=== PATIENT | female | born 1980 | race Two or more races ===

== ENCOUNTER 2023-07-25 05:31 | Emergency (ER) | payer MEDICAID ==
[~2023-07-25] VITALS: Ht 160 cm; Wt 71.4 kg
[2023-07-25 05:34] VITALS: TEMP 98.3
[2023-07-25 06:34] LABS: BASOPHILS % (AUTO) 0.5 % (0.0-2.0); EOSINOPHILS % (AUTO) 2.1 % (1.0-6.0); HEMATOCRIT 38.3 % (36-46); HEMOGLOBIN 13.4 g/dL (12.0-16.0); LYMPHOCYTES # (AUTO) 3.3 K/uL (1.0-4.8); LYMPHOCYTES % (AUTO) 30.9 % (22.0-44.0); MEAN CORPUSCULAR HEMOGLOBIN 30.9 pg (26.0-34.0); MEAN CORPUSCULAR HGB CONC 35.1 G/dL (31.0-37.0); MEAN CORPUSCULAR VOLUME 88 fL (80-100); MONOCYTES # (AUTO) 0.5 K/uL (0.1-1.0); MONOCYTES % (AUTO) 4.9 % (2.0-9.0); NEUTROPHILS # (AUTO) 6.5 K/uL (1.8-7.7); NEUTROPHILS % (AUTO) 61.6 % (40.0-70.0); PLATELET COUNT (AUTO) 244 K/uL (150-450); RED BLOOD CELL COUNT(AUTO) 4.36 MIL/uL (4.00-5.20); RED CELL DISTRIBUTION WIDTH 13.7 % (11.5-14.5); WHITE BLOOD COUNT (AUTO) 10.6 K/uL (4.5-11.0)
[2023-07-25] MEDS: SODIUM CHLORIDE 0.9% 1,000 ML IV ONE (06:38)
[2023-07-25] MEDS: KETOROLAC TROMETHAMINE 30 MG/ML VIAL IVP ONE (06:39)
[2023-07-25] MEDS: ONDANSETRON HCL 4 MG/2 ML VIAL IVP ONE (06:39)
[2023-07-25] MEDS: MORPHINE SULFATE 2 MG/ML SYRINGE IVP ONE (06:44)
[2023-07-25 07:11] LABS: ACETONE,BLOOD NEGATIVE (NEGATIVE)
[2023-07-25 07:16] LABS: ANION GAP 7 mmol/L (8-16); CALCIUM, TOTAL 9.7 mg/dL (8.8-10.5); CARBON DIOXIDE 27 mmol/L (22-29); CHLORIDE 95 mmol/L (98-107); CREATININE 0.74 mg/dL (0.60-1.30); GLOMERULAR FILTR. RATE CALC > 60 mL/min (>60); GLUCOSE,RANDOM 329 mg/dL (70-110); SODIUM SERUM 129 mmol/L (136-145); UREA NITROGEN, BLOOD 14 mg/dL (7-18)
[2023-07-25 07:21] LABS: ALANINE AMINOTRANSFERASE 16 U/L (12-78); ALBUMIN 3.5 g/dL (3.4-5.0); ALKALINE PHOSPHATASE 112 U/L (46-116); ASPARTATE AMINOTRANSFERASE 12 U/L (15-37); BILIRUBIN,TOTAL 0.7 mg/dL (0.1-1.0); LIPASE 32 U/L (16-77); TOTAL PROTEIN, SERUM 8.2 g/dL (6.4-8.2)
[2023-07-25] MEDS: INSULIN REGULAR, HUMAN 100 UNITS/ML IVP ONE (08:04)
[2023-07-25] MEDS ORDERED: ONDA-104 PO (08:28)
[2023-07-25] MEDS ORDERED: SYRI-590 SQ (08:37)
[2023-07-25 09:07] VITALS: BP 123/74; PULSE 88; RESP 16
[2023-07-25 10:01] LABS: GLUCOMETER DEV NAME(LOC) ERT.5; GLUCOSE,POINT OF CARE 289 MG/DL (70-110)
== END 2023-07-25 09:10 | disposition home or self-care (01) ==
LOC: EMS 05:33
DX: E11.42 Type 2 diabetes mellitus with diabetic polyneuropathy (principal); E11.65 Type 2 diabetes mellitus with hyperglycemia; G89.29 Other chronic pain; E87.1 Hypo-osmolality and hyponatremia; Z91.011 Allergy to milk products; Z91.012 Allergy to eggs
CPT/HCPCS: 99284; 96374; 96375; 96361; 80053; 82009; 82962; 83690; 84703; 85025; 36415; J1815; J1885; J2270; J2405; J7030

== ENCOUNTER 2024-11-12 16:47 | Emergency (ER) | payer MEDICAID, OTHER ==
[~2024-11-12] VITALS: Ht 160 cm; Wt 59.1 kg
[~2024-11-12 16:47] MED LIST: ONDA-104 PO; SYRI-590 SQ
[2024-11-12 16:52] VITALS: TEMP 97.5
[2024-11-12 17:45] VITALS: BP 122/82; PULSE 110; RESP 20; O2SAT 97
[2024-11-12] MEDS: ACETAMINOPHEN 500 MG TABLET PO ONE (18:02)
[2024-11-12] MEDS: IBUPROFEN 400 MG TABLET PO ONE (18:02)
[2024-11-12] MEDS: INSULIN LISPRO 100 UNITS/ML SQ ONE (18:04)
== END 2024-11-12 19:03 | disposition home or self-care (01) ==
LOC: EMS 16:47
DX: S62.522A Displaced fracture of distal phalanx of left thumb, initial encounter for closed fracture (principal); E11.65 Type 2 diabetes mellitus with hyperglycemia; Z91.011 Allergy to milk products; Z91.012 Allergy to eggs; W01.0XXA Fall on same level from slipping, tripping and stumbling without subsequent striking against object, initial encounter; Y93.89 Activity, other specified; Y92.89 Other specified places as the place of occurrence of the external cause; Y99.8 Other external cause status
CPT/HCPCS: 82948; 82962; 96372; 99283; J1815

== ENCOUNTER 2025-01-24 16:36 | Emergency (ER) | payer OTHER ==
[~2025-01-24] VITALS: Ht 160 cm; Wt 50.0 kg
[2025-01-24 17:01] LABS: GLUCOMETER DEV NAME(LOC) ER.7; GLUCOSE,POINT OF CARE 561 MG/DL (70-110)
[2025-01-24 17:17] LABS: PLATELET COUNT (AUTO) 345 K/uL (150-450); RED BLOOD CELL COUNT(AUTO) 4.19 MIL/uL (4.00-5.20); RED CELL DISTRIBUTION WIDTH 15.9 % (11.5-14.5); WHITE BLOOD COUNT (AUTO) 9.3 K/uL (4.5-11.0)
[2025-01-24 17:27] LABS: CALCIUM, TOTAL 9.0 mg/dL (8.8-10.5); CREATININE 1.15 mg/dL (0.60-1.30); GLOMERULAR FILTR. RATE CALC 51.0 mL/min (>60); SODIUM SERUM 128.0 mmol/L (136-145); UREA NITROGEN, BLOOD 11.0 mg/dL (7-18)
[2025-01-24 17:28] LABS: GLUCOSE,RANDOM 679.0 mg/dL (70-110)
[2025-01-24 17:48] LABS: PH,URINE DRUG SCREEN 5.5 (5.0-8.0)
[2025-01-24] MEDS: SODIUM CHLORIDE 0.9% 1,000 ML IV ONE ×2 (17:49→18:24)
[2025-01-24] MEDS: INSULIN REGULAR, HUMAN 100 UNITS/ML IVP ONE (17:50)
[2025-01-24 17:53] LABS: ABG BASE EXCESS -4.7 mmol/L (-2.0-3.0); ABG CARBOXYHEMOGLOBIN 0.3 % (0.5-1.5); ABG HCO3 20.9 mmol/L (21.0-28.0); ABG METHEMOGLOBIN 0.9 % (0.0-1.5); ABG OXYGEN CONTENT 14.7 mL/dL (15.0-23.0); ABG OXYGEN SATURATION 95.9 % (94.0-98.0); ABG OXYHEMOGLOBIN 94.7 % (94.0-98.0); ABG PCO2 37 mmHg (32.0-45.0); ABG PH 7.362 (7.350-7.450); ABG TOTAL HEMOGLOBIN 11.0 G/dL (12.0-16.0); FRACTIONATED INSPIRED OXYGEN 21.0 % (21-100.0); PO2, ARTERIAL BG 83.5 mmHg (83.0-108.0); SOURCE, BLOOD GAS ARTERIAL; TEMPERATURE, FAHRENHEIT, BG 98.3 FAHREN (96.0-98.6)
[2025-01-24 17:54] LABS: O2 DEVICE,BLOOD GAS ROOM AIR (ROOM AIR); PATIENT RATE, BG 20.0 min.; SITE, BLOOD GAS LFT BRACHIAL
[2025-01-24 17:55] LABS: ALCOHOL, URINE DRUG SCREEN NEGATIVE (NEGATIVE); AMPHET/METH SCREEN,URINE POSITIVE (NEGATIVE); BARBITURATE SCREEN, URINE NEGATIVE (NEGATIVE); CANNABINOID SCREEN,URINE NEGATIVE (NEGATIVE); COCAINE SCREEN,URINE NEGATIVE (NEGATIVE); METHADONE SCREEN, URINE NEGATIVE (NEGATIVE)
[2025-01-24 17:59] LABS: ASPARTATE AMINOTRANSFERASE 10 U/L (15-37); HCG,QUANTITATIVE 1 mIU/mL (0-6); TOTAL PROTEIN, SERUM 8.2 g/dL (6.4-8.2)
[2025-01-24 18:31] LABS: TROPONIN I-HIGH SENSITIVITY 9 ng/L (<51)
[2025-01-24 18:36] LABS: ACETONE,BLOOD NEGATIVE (NEGATIVE); ALCOHOL, BLOOD (SERUM) < 3 mg/dL (0-10); LACTIC ACID 4.2 mmol/L (0.4-2.0)
[2025-01-24 19:52] VITALS: BP 118/73; PULSE 109; RESP 20; TEMP 98.3; O2SAT 99
== END 2025-01-24 19:45 | disposition left against medical advice (07) ==
LOC: EMS 16:36
DX: E11.65 Type 2 diabetes mellitus with hyperglycemia (principal); F15.10 Other stimulant abuse, uncomplicated; N89.8 Other specified noninflammatory disorders of vagina; Z91.011 Allergy to milk products; Z91.012 Allergy to eggs; W19.XXXA Unspecified fall, initial encounter
CPT/HCPCS: 99291; 70450; 96374; 96361; 80048; 80076; 82009; 82962; 83605; 84484; 84702; 85025; 36415; 82805; 72125; 93005; 80307; G0480; J1815; J7030

== ENCOUNTER 2025-04-11 18:22 | Emergency (ER) | payer OTHER ==
[~2025-04-11] VITALS: Ht 160 cm; Wt 54.5 kg
[2025-04-11 18:31] VITALS: TEMP 98.1
[2025-04-11 18:50] LABS: GLUCOMETER DEV NAME(LOC) ER.7; GLUCOSE,POINT OF CARE 588 MG/DL (70-110)
[2025-04-11 19:32] LABS: COVID AG,FIA SOURCE NASAL SWAB
[2025-04-11 19:35] LABS: PLATELET COUNT (AUTO) 302 K/uL (150-450); RED BLOOD CELL COUNT(AUTO) 3.99 MIL/uL (4.00-5.20); RED CELL DISTRIBUTION WIDTH 15.1 % (11.5-14.5); WHITE BLOOD COUNT (AUTO) 7.9 K/uL (4.5-11.0)
[2025-04-11 19:48] LABS: ACETONE,BLOOD NEGATIVE (NEGATIVE)
[2025-04-11 19:51] LABS: LACTIC ACID 1.8 mmol/L (0.4-2.0)
[2025-04-11 19:52] LABS: INFLUENZA TYPE A NEGATIVE FOR TYPE A (NEGATIVE); INFLUENZA TYPE B NEGATIVE FOR TYPE B (NEGATIVE); SARS-COV2 (COVID) ANTIGEN,FIA Negative (Negative)
[2025-04-11 19:54] LABS: CALCIUM, TOTAL 8.4 mg/dL (8.8-10.5); CREATININE 0.75 mg/dL (0.60-1.30); GLOMERULAR FILTR. RATE CALC > 60 mL/min (>60); SODIUM SERUM 128 mmol/L (136-145); UREA NITROGEN, BLOOD 12 mg/dL (7-18)
[2025-04-11 19:55] LABS: GLUCOSE,RANDOM 517 mg/dL (70-110)
[2025-04-11 20:07] LABS: ASPARTATE AMINOTRANSFERASE 10 U/L (15-37); TOTAL PROTEIN, SERUM 8.7 g/dL (6.4-8.2)
[2025-04-11] MEDS ORDERED: POTASSIUM CHL 10 MEQ/WATER 50 ML IV ONE (20:15)
[2025-04-11] MEDS ORDERED: INSULIN REGULAR, HUMAN 100 UNITS/ML IVP ONE (20:15)
[2025-04-11] MEDS: POTASSIUM CHLORIDE 20 MEQ ER TABLET PO ONE (21:12)
[2025-04-11] MEDS: MORPHINE SULFATE 2 MG/ML SYRINGE IVP ONE (21:12)
[2025-04-11] MEDS: INSULIN REGULAR, HUMAN 100 UNITS/ML IVP ONE (21:13)
[2025-04-11 21:20] LABS: GLUCOMETER DEV NAME(LOC) ERT.7; GLUCOSE,POINT OF CARE 429 MG/DL (70-110)
[2025-04-11] MEDS ORDERED: CEPH-558 PO (21:41)
[2025-04-11] MEDS ORDERED: ACET-2247 PO (21:52)
[2025-04-11] MEDS ORDERED: IBUP-1492 PO (21:52)
[2025-04-11 22:22] VITALS: BP 128/89; PULSE 95; RESP 18; O2SAT 98
== END 2025-04-11 22:41 | disposition home or self-care (01) ==
LOC: EMS 18:35
DX: L03.115 Cellulitis of right lower limb (principal); E11.65 Type 2 diabetes mellitus with hyperglycemia; Z91.0110 Allergy to milk products, unspecified; Z91.0120 Allergy to eggs, unspecified; Z20.822 Contact with and (suspected) exposure to COVID-19
CPT/HCPCS: 99284; 96374; 96375; 87426; 80048; 80076; 82009; 82962; 83605; 85025; 87040; 87804; 36415; J1815; J2270

== ENCOUNTER 2025-05-11 17:03 | Inpatient (IN) | payer OTHER ==
[~2025-05-11] VITALS: Ht 165.1 cm; Wt 54.0 kg
[~2025-05-11 17:03] MED LIST changes: +ACET-2247 PO; +CEPH-558 PO; +IBUP-1492 PO; -ONDA-104 PO; -SYRI-590 SQ
[2025-05-11] MEDS ORDERED: 0.9% SODIUM CHLORIDE 10 ML SYRINGE IVP PRN (17:30)
[2025-05-11 17:50] LABS: PLATELET COUNT (AUTO) 380 K/uL (150-450); RED BLOOD CELL COUNT(AUTO) 4.01 MIL/uL (4.00-5.20); RED CELL DISTRIBUTION WIDTH 15.3 % (11.5-14.5); WHITE BLOOD COUNT (AUTO) 13.4 K/uL (4.5-11.0)
[2025-05-11 17:54] LABS: CALCIUM, TOTAL 9.3 mg/dL (8.8-10.5); CREATININE 0.83 mg/dL (0.60-1.30); GLOMERULAR FILTR. RATE CALC > 60 mL/min (>60); GLUCOSE,RANDOM 354 mg/dL (70-110); SODIUM SERUM 129 mmol/L (136-145); UREA NITROGEN, BLOOD 9 mg/dL (7-18)
[2025-05-11] MEDS: ACETAMINOPHEN 500 MG TABLET PO ONE (17:56)
[2025-05-11] MEDS: SODIUM CHLORIDE 0.9% 1,600 ML IV ONE (17:56)
[2025-05-11 18:09] LABS: LACTIC ACID 2.3 mmol/L (0.4-2.0)
[2025-05-11 18:10] LABS: ALCOHOL, BLOOD (SERUM) < 3 mg/dL (0-10)
[2025-05-11] MEDS: VANCOMYCIN HCL 1 GM in DEXTROSE 5%-WATER 250 ML IV ONE (18:19)
[2025-05-11] MEDS: PIPERACILLIN/TAZO 3.375 GM/D5W 50 ML IV ONE (19:32)
[2025-05-11] MEDS ORDERED: DEXTROSE 50%-WATER 25 GM/50 ML SYRINGE IVP PRN (20:30)
[2025-05-11] MEDS ORDERED: ONDANSETRON HCL 4 MG/2 ML VIAL IVP PRN (20:30)
[2025-05-11] MEDS ORDERED: NOREPINEPHRINE 8 MG/0.9 % NACL 250 ML IV PRN (20:30)
[2025-05-11] MEDS: CefTRIAXone 1 GM/DEXTROSE 50 ML IV SCH (20:49)
[2025-05-11] MEDS: RINGERS SOLUTION,LACTATED 1,000 ML IV SCH (20:49)
[2025-05-11] MEDS: DOCUSATE SODIUM 100 MG CAPSULE PO SCH (20:50)
[2025-05-11] MEDS: INSULIN GLARGINE,HUM.REC.ANLOG 100 UNITS/ML SQ SCH (20:54)
[2025-05-11] MEDS: INSULIN LISPRO 100 UNITS/ML SQ PRN (20:55)
[2025-05-11 22:51] LABS: ASPARTATE AMINOTRANSFERASE 12.0 U/L (15-37); TOTAL PROTEIN, SERUM 9.7 g/dL (6.4-8.2)
[2025-05-11 23:09] VITALS: BP 90/60; PULSE 96; RESP 18; TEMP 98.6; O2SAT 99
[2025-05-11] MEDS: ACETAMINOPHEN 325 MG TABLET PO PRN (23:35)
[2025-05-12] MEDS: AZITHROMYCIN 500 MG/NS 250 ML IV SCH (00:20)
[2025-05-12] MEDS: VANCOMYCIN HCL 750 MG in DEXTROSE 5%-WATER 250 ML IV SCH (01:30)
[2025-05-12 04:26] VITALS: BP 93/61; PULSE 96; RESP 16; TEMP 97.5; O2SAT 97
[2025-05-12 05:58] LABS: PLATELET COUNT (AUTO) 280 K/uL (150-450); RED BLOOD CELL COUNT(AUTO) 3.00 MIL/uL (4.00-5.20); RED CELL DISTRIBUTION WIDTH 15.2 % (11.5-14.5); WHITE BLOOD COUNT (AUTO) 10.8 K/uL (4.5-11.0)
[2025-05-12 06:14] LABS: CALCIUM, TOTAL 8.0 mg/dL (8.8-10.5); CREATININE 0.58 mg/dL (0.60-1.30); GLOMERULAR FILTR. RATE CALC > 60 mL/min (>60); GLUCOSE,RANDOM 283 mg/dL (70-110); SODIUM SERUM 131 mmol/L (136-145); UREA NITROGEN, BLOOD 6 mg/dL (7-18)
[2025-05-12 08:33] VITALS: BP 95/60; PULSE 96; RESP 18; TEMP 98.6; O2SAT 98
[2025-05-12] MEDS ORDERED: MAGNESIUM SULFATE 4 GM/WATER 100 ML IV PRN (09:00)
[2025-05-12] MEDS ORDERED: MAGNESIUM SULFATE 2 GM/WATER 50 ML IV PRN (09:00)
[2025-05-12] MEDS ORDERED: POTASSIUM CHL 10 MEQ/WATER 50 ML IV PRN (09:00)
[2025-05-12] MEDS: MAGNESIUM OXIDE 400 MG TABLET PO PRN (09:14)
[2025-05-12] MEDS: POTASSIUM CHLORIDE 20 MEQ ER TABLET PO PRN (09:14)
[2025-05-12] MEDS: INSULIN GLARGINE,HUM.REC.ANLOG 100 UNITS/ML SQ SCH (09:21)
[2025-05-12 12:41] VITALS: BP 110/72; PULSE 118; RESP 16; TEMP 98.4; O2SAT 97
[2025-05-12 14:41] LABS: GLUCOMETER DEV NAME(LOC) 5N.1D; GLUCOSE,POINT OF CARE 245 MG/DL (70-110)
[2025-05-12 14:41] LABS: GLUCOMETER DEV NAME(LOC) 5N.1D; GLUCOSE,POINT OF CARE 348 MG/DL (70-110)
[2025-05-12 14:41] LABS: GLUCOMETER DEV NAME(LOC) 5N.1D; GLUCOSE,POINT OF CARE 258 MG/DL (70-110)
[2025-05-12 15:40] VITALS: BP 95/58; PULSE 111; RESP 16; TEMP 99; O2SAT 97
[2025-05-12 18:41] LABS: GLUCOMETER DEV NAME(LOC) 5N.1D; GLUCOSE,POINT OF CARE 351 MG/DL (70-110)
[2025-05-12 18:57] LABS: APPEARANCE,URINE CLEAR (CLEAR); GLUCOSE, URINE (UA) >=1000 mg/dL (NEGATIVE); LEUKOCYTE ESTERASE ,URINE LARGE (NEGATIVE); NITRATE,URINE POSITIVE (NEGATIVE); OCCULT BLOOD,URINE NEGATIVE (NEGATIVE); PH,URINE DRUG SCREEN 6.0 (5.0-8.0); SPECIFIC GRAVITIY, URINE 1.034 (1.003-1.030)
[2025-05-12 19:03] LABS: ALCOHOL, URINE DRUG SCREEN NEGATIVE (NEGATIVE); AMPHET/METH SCREEN,URINE NEGATIVE (NEGATIVE); BARBITURATE SCREEN, URINE NEGATIVE (NEGATIVE); CANNABINOID SCREEN,URINE POSITIVE (NEGATIVE); COCAINE SCREEN,URINE NEGATIVE (NEGATIVE); METHADONE SCREEN, URINE NEGATIVE (NEGATIVE)
[2025-05-12 19:06] LABS: SQUAMOUS EPITHELIAL CELL,UR Few /LPF (None Seen); YEAST,URINE Few /HPF (None Seen)
[2025-05-12 20:33] VITALS: BP 98/69; PULSE 109; RESP 17; TEMP 99.5; O2SAT 96
[2025-05-12 22:39] VITALS: BP 93/53; PULSE 101; RESP 18; TEMP 99.7; O2SAT 95
[2025-05-12 22:56] LABS: GLUCOMETER DEV NAME(LOC) 5N.1D; GLUCOSE,POINT OF CARE 219 MG/DL (70-110)
[2025-05-13] VITALS (9 sets, daily range): BP systolic 81–120; BP diastolic 51–79; PULSE 84–123; RESP 16–19; TEMP 98.4–102.4; O2SAT 96–99
[2025-05-13] MEDS: HEPARIN SODIUM,PORCINE 5,000 UNITS/ML VIAL SQ SCH (00:20)
[2025-05-13] MEDS: HYDROCODONE/ACETAMINOPHEN 5-325 MG TABLET PO PRN (03:45)
[2025-05-13 06:06] LABS: PLATELET COUNT (AUTO) 292 K/uL (150-450); RED BLOOD CELL COUNT(AUTO) 2.91 MIL/uL (4.00-5.20); RED CELL DISTRIBUTION WIDTH 15.6 % (11.5-14.5); WHITE BLOOD COUNT (AUTO) 9.8 K/uL (4.5-11.0)
[2025-05-13 06:20] LABS: CALCIUM, TOTAL 7.9 mg/dL (8.8-10.5); CREATININE 0.69 mg/dL (0.60-1.30); GLOMERULAR FILTR. RATE CALC > 60 mL/min (>60); GLUCOSE,RANDOM 345 mg/dL (70-110); SODIUM SERUM 133 mmol/L (136-145); UREA NITROGEN, BLOOD 6 mg/dL (7-18)
[2025-05-13 06:20] LABS: GLUCOMETER DEV NAME(LOC) 5S.1E; GLUCOSE,POINT OF CARE 332 MG/DL (70-110)
[2025-05-13] MEDS ORDERED: INSULIN GLARGINE,HUM.REC.ANLOG 100 UNITS/ML SQ SCH (09:00)
[2025-05-13 11:50] LABS: GLUCOMETER DEV NAME(LOC) 5S.2E; GLUCOSE,POINT OF CARE 303 MG/DL (70-110)
[2025-05-13 13:00] LABS: GLUCOMETER DEV NAME(LOC) 5S.2E; GLUCOSE,POINT OF CARE 441 MG/DL (70-110)
[2025-05-13] MEDS: MAGNESIUM SULFATE 2 GM/WATER 50 ML IV ONE (13:39)
[2025-05-13] MEDS: RINGERS SOLUTION,LACTATED 500 ML IV ONE (13:40)
[2025-05-13] MEDS: INSULIN GLARGINE,HUM.REC.ANLOG 100 UNITS/ML SQ ONE (13:43)
[2025-05-13] MEDS: INSULIN LISPRO 100 UNITS/ML SQ ONE (13:46)
[2025-05-13 14:32] LABS: PH,URINE DRUG SCREEN 6.0 (5.0-8.0)
[2025-05-13 14:39] LABS: ALCOHOL, URINE DRUG SCREEN NEGATIVE (NEGATIVE); AMPHET/METH SCREEN,URINE NEGATIVE (NEGATIVE); BARBITURATE SCREEN, URINE NEGATIVE (NEGATIVE); CANNABINOID SCREEN,URINE NEGATIVE (NEGATIVE); COCAINE SCREEN,URINE NEGATIVE (NEGATIVE); METHADONE SCREEN, URINE NEGATIVE (NEGATIVE)
[2025-05-13] MEDS: *CLINICAL-MEROPENEM DOSING CLINICAL ONE (16:19)
[2025-05-13] MEDS: CLINDAMYCIN 900 MG/D5% WATER 50 ML IV SCH (17:48)
[2025-05-13] MEDS ORDERED: MEROPENEM 1 GM in SODIUM CHLORIDE 0.9% 50 ML IV SCH (18:00)
[2025-05-13 18:21] LABS: GLUCOMETER DEV NAME(LOC) 5S.2E; GLUCOSE,POINT OF CARE 160 MG/DL (70-110)
[2025-05-13] MEDS: PIPERACILLIN/TAZO 3.375 GM/D5W 50 ML IV SCH (18:27)
[2025-05-13] MEDS: INSULIN GLARGINE,HUM.REC.ANLOG 100 UNITS/ML SQ SCH (21:10)
[2025-05-13] MEDS: VANCOMYCIN HCL 750 MG in DEXTROSE 5%-WATER 250 ML IV SCH (21:12)
[2025-05-14] VITALS: PULSE 111; TEMP 100
[2025-05-14 01:45] LABS: GLUCOMETER DEV NAME(LOC) 5S.2E; GLUCOSE,POINT OF CARE 263 MG/DL (70-110)
[2025-05-14 04:01] VITALS: BP 100/59; PULSE 102; RESP 18; TEMP 98.8; O2SAT 96
[2025-05-14 07:45] LABS: GLUCOMETER DEV NAME(LOC) 5S.2E; GLUCOSE,POINT OF CARE 242 MG/DL (70-110)
[2025-05-14 08:28] VITALS: BP 99/64; PULSE 106; RESP 18; TEMP 98.1; O2SAT 99
[2025-05-14] MEDS ORDERED: SODIUM CHLORIDE 0.9% 500 ML IV ONE (09:11)
[2025-05-14] MEDS ORDERED: GADOTERATE MEGLUMINE 10 MMOL/20 ML VIAL IVP ONE (09:17)
[2025-05-14 09:19] LABS: PLATELET COUNT (AUTO) 309 K/uL (150-450); RED BLOOD CELL COUNT(AUTO) 2.95 MIL/uL (4.00-5.20); RED CELL DISTRIBUTION WIDTH 15.9 % (11.5-14.5); WHITE BLOOD COUNT (AUTO) 8.1 K/uL (4.5-11.0)
[2025-05-14 09:25] LABS: RBC MORPHOLOGY COMMENT ABNORMAL RBC MORPH
[2025-05-14 09:34] LABS: ASPARTATE AMINOTRANSFERASE 20 U/L (15-37); CALCIUM, TOTAL 8.0 mg/dL (8.8-10.5); CREATININE 0.54 mg/dL (0.60-1.30); GLOMERULAR FILTR. RATE CALC > 60 mL/min (>60); GLUCOSE,RANDOM 130 mg/dL (70-110); SODIUM SERUM 137 mmol/L (136-145); TOTAL PROTEIN, SERUM 6.9 g/dL (6.4-8.2); UREA NITROGEN, BLOOD 7 mg/dL (7-18)
[2025-05-14 11:30] LABS: GLUCOMETER DEV NAME(LOC) 5S.1E; GLUCOSE,POINT OF CARE 93 MG/DL (70-110)
[2025-05-14 11:44] VITALS: BP 107/56; PULSE 113; RESP 17; TEMP 98.1; O2SAT 99
[2025-05-14 14:26] LABS: GLUCOMETER DEV NAME(LOC) 5S.1E; GLUCOSE,POINT OF CARE 200 MG/DL (70-110)
[2025-05-14 15:53] VITALS: BP 93/62; PULSE 99; RESP 18; TEMP 97.7; O2SAT 99
[2025-05-14 18:40] LABS: GLUCOMETER DEV NAME(LOC) 5S.2E; GLUCOSE,POINT OF CARE 215 MG/DL (70-110)
[2025-05-14 20:27] VITALS: BP 110/69; PULSE 115; RESP 19; TEMP 100.8; O2SAT 100
[2025-05-14 20:35] LABS: GLUCOMETER DEV NAME(LOC) 5S.1E; GLUCOSE,POINT OF CARE 139 MG/DL (70-110)
[2025-05-14 21:07] LABS: HEPATITIS C AB (EIA) Non Reactive (Non Reactive)
[2025-05-15 01:02] VITALS: BP 100/72; PULSE 104; RESP 17; TEMP 100.4; O2SAT 98
[2025-05-15 06:04] LABS: CALCIUM, TOTAL 8.1 mg/dL (8.8-10.5); CREATININE 0.60 mg/dL (0.60-1.30); GLOMERULAR FILTR. RATE CALC > 60 mL/min (>60); GLUCOSE,RANDOM 186 mg/dL (70-110); SODIUM SERUM 132 mmol/L (136-145); UREA NITROGEN, BLOOD 9 mg/dL (7-18)
[2025-05-15 06:15] VITALS: BP 90/63; PULSE 93; RESP 16; TEMP 98.6; O2SAT 100
[2025-05-15 08:21] LABS: GLUCOMETER DEV NAME(LOC) 5S.2E; GLUCOSE,POINT OF CARE 137 MG/DL (70-110)
[2025-05-15] MEDS: VANCOMYCIN HCL 1.25 GM in DEXTROSE 5%-WATER 250 ML IV SCH (08:49)
[2025-05-15 17:45] LABS: GLUCOMETER DEV NAME(LOC) 5S.1E; GLUCOSE,POINT OF CARE 162 MG/DL (70-110)
[2025-05-15 21:00] VITALS: BP 90/56; PULSE 110; RESP 18; TEMP 98.8; O2SAT 98
[2025-05-16 06:26] LABS: GLUCOMETER DEV NAME(LOC) 5S.1E; GLUCOSE,POINT OF CARE 340 MG/DL (70-110)
== END 2025-05-15 21:53 | disposition left against medical advice (07) | DRG 720 ==
LOC: EMS 17:34 → EDH 20:22 → 5N 22:42
PROVIDERS: ADMIT Internal Medicine; ATTEND Internal Medicine
DX: A41.9 Sepsis, unspecified organism (principal); E43 Unspecified severe protein-calorie malnutrition; L03.115 Cellulitis of right lower limb; L02.415 Cutaneous abscess of right lower limb; N39.0 Urinary tract infection, site not specified; E11.65 Type 2 diabetes mellitus with hyperglycemia; E83.51 Hypocalcemia; Z53.29 Procedure and treatment not carried out because of patient's decision for other reasons; F19.90 Other psychoactive substance use, unspecified, uncomplicated; I95.9 Hypotension, unspecified; Z68.1 Body mass index [BMI] 19.9 or less, adult; Z91.199 Patient's noncompliance with other medical treatment and regimen due to unspecified reason; Z91.0120 Allergy to eggs, unspecified; Z91.0110 Allergy to milk products, unspecified; Z79.899 Other long term (current) drug therapy
CPT/HCPCS: 71045; 73720; 80048; 80053; 80076; 80202; 80307; 81001; 82009; 82040; 82962; 83605; 83735; 84132; 84145; 84703; 85025; 85045; 85610; 86803; 87040; 87070; 87081; 87086; 87205; 87340; 93005; 99291; G0480; J0456; J0696; J1644; J1815; J2185; J2543; J3373; J3374; J3475; J3490; J7030; J7040; J7050; J7060; J7120; 36415-L1; 36415-TC